=== PATIENT | female | born 1970 | race Caucasian/White ===

== ENCOUNTER 2024-01-29 16:07 | Emergency (ER) | payer MEDICARE, MEDICAID ==
[~2024-01-29] VITALS: Ht 167.6 cm; Wt 84.1 kg
[2024-01-29 16:24] VITALS: BP 106/71; PULSE 62; TEMP 98; O2SAT 99
[2024-01-29] MEDS ORDERED: ketorolac trometh. 30mg/ml inj. IM ONE (19:10)
[2024-01-29 19:22] VITALS: RESP 16
[2024-01-29] MEDS: ketorolac tromethamine 15mg/ml inj. IM ONE (19:22)
[2024-01-29] MEDS: HYDROcodone/acetaminophen 5mg/325mg tablet PO ONE (19:22)
== END 2024-01-29 19:30 | disposition home or self-care (01) ==
LOC: ER 16:08
DX: M77.9 Enthesopathy, unspecified (principal); M77.11 Lateral epicondylitis, right elbow; F20.9 Schizophrenia, unspecified
CPT/HCPCS: 73080; 96372; 99283; A4565; J1885